=== PATIENT | male | born 1985 ===

== ENCOUNTER 2024-01-05 19:10 | Emergency (ER) | payer OTHER, SELFPAY ==
--- NOTE | ~2024-01-05 | XR_ITS ---
EXAMINATION: PORTABLE CHEST 1 VIEW CLINICAL INFORMATION: rib pain. COMPARISON: No recent pertinent prior studies are available for comparison. TECHNIQUE: Portable frontal view of the chest was obtained. FINDINGS: The lungs are well expanded. No focal infiltrate, effusion, edema, or pneumothorax. Cardiac and mediastinal silhouettes are within normal limits for technique. No acute bony abnormality seen. XR/XR chest 1V IMPRESSION: No evidence of acute disease. Electronically signed by: John Pacheco MD 01/05/2024 07:31 PM EDT
--- NOTE | ~2024-01-05 | CT_ITS ---
EXAMINATION: CT ABDOMEN AND PELVIS WITH CONTRAST CLINICAL INFORMATION: Epigastric pain with history of perforated ulcer. COMPARISON: None available. TECHNIQUE: Multidetector volumetric images were obtained from the superior aspect of the liver through the pubic symphysis following administration 85 mL of Omnipaque 350 intravenous contrast. Sagittal and coronal reformatted images were obtained on the technologist's workstation. Oral contrast: No This CT examination was performed using dose optimization techniques as appropriate, variously including the following: *Automated exposure control *Adjustment of mA and/or kV according to patient size (this includes techniques or standardized protocols for targeted exams where dose is matched to indication/reason for exam; i.e. extremities or head) *Use of iterative reconstruction technique DLP: 506 mGy-cm FINDINGS: LUNG BASES: The visualized lung bases are unremarkable. LIVER, GALLBLADDER, AND BILIARY TREE: The liver is normal in size, shape, and attenuation. No focal hepatic lesion or biliary ductal dilatation is present. Gallbladder surgically absent. PANCREAS: Unremarkable. SPLEEN: Unremarkable. ADRENAL GLANDS: Unremarkable. KIDNEYS AND URETERS: The kidneys are normal in size, shape, and attenuation. No hydronephrosis, hydroureter, or calculi seen. No perinephric stranding. BLADDER: Unremarkable. GASTROINTESTINAL TRACT: Chain ralph are present at the sigmoid colon. Stomach, small bowel, and colon are normal in caliber. No surrounding inflammatory changes. No intraperitoneal free fluid or free air. Appendix is normal. ABDOMINAL WALL: Status post umbilical herniorrhaphy with mesh. No surrounding fluid collections. No recurrent hernias. LYMPH NODES: Normal. VASCULAR: Unremarkable. PELVIC VISCERA: Unremarkable. 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 Bilateral hip dysplasia with abnormal morphology of the proximal femurs as well as moderate osteoarthritis. Prior varus osteotomy is suspected at the right proximal femur. CT/CT abdomen pelvis w IV con IMPRESSION: 1. No acute intra-abdominal or intrapelvic abnormalities. No evidence of perforation. 2. Status post umbilical herniorrhaphy with mesh. No recurrent hernias. 3. Bilateral hip dysplasia with moderate osteoarthritis. Fleischner guidelines were followed. Electronically signed by: Prakash Vick MD 01/06/2024 12:03 AM EDT
--- NOTE | 2024-01-05 19:18 | ED_ITS ---
HPI - General Adult General Chief complaint: Abdominal Pain Stated complaint: Rib pain Time Seen by Provider: 01/05/24 22:20 Source: patient Mode of arrival: ambulatory Limitations: no limitations History of Present Illness ED Provider: MICHAEL SESAY narrative: 38 yo male with PMH of HTN not on meds for 6 months, prior perforated gastric ulcer treated at [facility] 3 years ago not on any PPI, does not take NSAIDs here with c/o 1 weeks LUQ pain n/v this all started after heavy binge drinking last week. No recent alcohol. He notes he has not had pancreatitis before. He feels acid and burning in his throat. No GI bleed symptoms reported. He has a PCP in [place] but has not seen them in a while. He denies fevers, diarrhea. Has had this pain before MD complaint: abdominal pain Onset (ago): week(s) (1) Location: abdomen Radiation: non-radiation Severity: moderate Quality: burning and aching Pain Consistency: constant Relieving factors: none Exacerbating factors: eating Associated symptoms: loss of appetite, malaise and nausea/vomiting Treatments prior to arrival: none Related Data Previous Rx's ?Medication ?Instructions ?Recorded omeprazole 40 mg capsule,delayed 40 mg PO DAILY #30 caps 01/06/24 release ondansetron 4 mg disintegrating 4 mg PO Q8H PRN nausea and 01/06/24 tablet vomiting #20 tabs Allergies Allergy/AdvReac Type Severity Reaction Status Date / Time No Known Allergies Allergy Verified 01/05/24 19:22 Review of Systems 2 Review of Systems: Constitutional : No Weight loss, No Fever, No Chills ENT/Mouth : No sore throat, No Rhinorrhea Eyes: No Swelling, No Redness Cardiovascular : No Chest Pain, No SOB, NoEdema Respiratory : No Cough, No Sputum, No Wheezing Gastrointestinal : Positive Nausea, Positive Vomiting, no Diarrhea, positive abdominal Pain, No Hematochezia, No Melena Genitourinary : No Dysuria, No Urinary Frequency, No Hematuria, No Urgency Musculoskeletal : No joint pain, No Myalgias, No Joint Swelling Skin : No Skin Lesions, No rash Neuro : No Weakness, No Numbness, No Dizziness, No Headache Psych : No Anxiety/Panic, No Depression All other systems reviewed and are negative. [facility] Past Medical History Attestation statement: The following information was validated with the patient. Source: old records reviewed Medical History Perforated ulcer GERD (gastroesophageal reflux disease) HTN (hypertension) Surgical History History of laparotomy Social History Social History (Updated 01/05/24 @ 22:32 by Renetta Quintana DO) Alcohol intake: current Alcohol intake frequency: a few times a week Patient Tobacco Use Status: Tobacco use Unknown Smoked in Last 30 Days: Yes Use of substances other than those prescribed or required for medical reasons: No Substance Use Type: Marijuana Substance Use Frequency: Occasionally Advance Directives: No Advance Directives Information Provided: No Do you have a plan to hurt others: No Plan Physical Exam ED Vital Signs: Vital Signs - 24 hr 01/05/24 19:21 01/05/24 23:01 01/05/24 23:04 Temperature 98.7 F 98.5 F Pulse Rate 109 H 88 Respiratory Rate 20 18 16 Blood Pressure 163/89 H 121/78 Pulse Oximetry 99 94 Oxygen Delivery Method Room Air 01/05/24 23:37 01/06/24 00:38 Temperature 98.0 F 98.0 F Pulse Rate 99 87 Respiratory Rate 19 19 Blood Pressure 126/78 135/80 Pulse Oximetry 98 97 Oxygen Delivery Method Room Air Room Air BMI result Body Mass Index 34.0 Appearance: Alert. Oriented X3. No acute distress. Eyes: Pupils equal, round and reactive to light. ENT: Pharynx mildly dry MM Neck: Normal inspection. Neck supple. CVS: Normal heart rate and rhythm. Pulses normal. Respiratory: No respiratory distress. Breath sounds normal. Abdomen: Soft and moderate ttp in LUQ no rebound or guarding Skin: Skin warm and dry. Normal skin color. Normal skin turgor. Extremities: No lower extremity edema. No calf ttp Neuro: Oriented X 3. No motor deficit. No sensory deficit. Course Course Course Narrative: This is an RME done by LUZ Sanchez: Additional HPI, ROS, PE not included below will be deferred to primary provider. 38 year old presenting with concerns of LUQ abdominal/rib pain x past few days. He states he does drink alcohol frequently. Denies recent travel or sick contacts. Plan - imaging Appearance: Alert.? Oriented X3.? No acute cardiopulmonary distress distress.? Head: Normocephalic, atraumatic, no step-offs or deformities Neck: Normal inspection.? Neck supple.? CVS: Pulses normal.? Respiratory: No respiratory distress.? Abdomen: Soft and nontender.? Skin: ? Normal skin color. Extremities: 5/5 strength to bilateral upper and lower extremities Neuro: Oriented X 3.? No motor deficit.? No sensory deficit. Medications Administered Discontinued Medications Generic Name Dose Route Start Last Admin Trade Name Freq PRN Reason Stop Dose Admin Al Hydroxide/Mg Hydroxide 15 ml 01/06/24 00:12 01/06/24 00:34 Magnesium Hydrox/Alum Hydrox 30 Ml Oral.Susp PO 01/06/24 00:13 15 ml ONCE ONE Administration Lactated Ringer's 1,000 mls @ 999 mls/hr 01/05/24 22:25 01/05/24 23:04 Lr IV 01/05/24 23:25 999 mls/hr .Q1H1M ONE Administration Iohexol 85 ml 01/05/24 23:29 01/05/24 23:29 Iohexol 350 Mg/Ml 100 Ml Infus..Btl IV 01/05/24 23:30 85 ml ONCE ONE Administration Lidocaine HCl 15 ml 01/06/24 00:12 01/06/24 00:34 Lidocaine Hcl Viscous 2 % 15 Ml Solution MUCOUS MEM 01/06/24 00:13 15 ml ONCE ONE Administration Morphine Sulfate 4 mg 01/05/24 22:25 01/05/24 23:04 Morphine Sulfate 4 Mg/Ml Cartridge IVPUSH 01/05/24 22:26 4 mg ONCE ONE Administration Protocol Ondansetron HCl 4 mg 01/05/24 22:25 01/05/24 23:05 Ondansetron Hcl 4 Mg/2 Ml Vial IVPUSH 01/05/24 22:26 4 mg ONCE ONE Administration Pantoprazole Sodium 40 mg 01/05/24 22:25 01/05/24 23:05 Pantoprazole Sodium 40 Mg/10 Ml Vial IVPUSH 01/05/24 22:26 40 mg ONCE ONE Administration Medical Decision Making Medical Decision Making MDM Narrative: 38 yo male with PMH of HTN not on meds for 6 months, prior perforated gastric ulcer treated at [facility] 3 years ago not on any PPI, does not take NSAIDs here with c/o LUQ pain n/v no fevers no GIB symptoms not compliant with his medications at this time IV protonix, IV morphine for pain, CT scan for pancreatitis/perforated ulcer. He has no signs of withdrawal at this time BP is chronic due to lack of medications. He denies SI/HI. Differential Diagnosis Differential Diagnoses: The differential diagnosis associated with the presentation includes pancreatitis, gastritis, GERD, ETOH misuse Admission/Observation Consideration of admission/observation: Escalation of care including admission/observation considered labs, CT scan no vomiting stable for DC Lab Data MDM Lab Attestation statement: I reviewed the patient's lab results. 01/05/24 19:33 01/05/24 19:33 Labs: Lab Results 01/05/24 Range/Units 19:33 WBC 10.5 (4.8-10.8) X10*3/uL RBC 4.41 L (4.60-5.80) X10*6/uL Hgb 14.4 (14.0-18.0) g/dl Hct 42.1 (42.0-52.0) % MCV 95.5 (80.0-98.0) fL MCH 32.7 (27.0-33.0) pg MCHC 34.2 (31.0-36.0) g/dl RDW 13.3 (11.0-16.0) % Plt Count 366 (160-400) X10*3/uL MPV 8.9 L (9.4-12.4) fL Immature Gran % (Auto) 0.5 H (0.0-0.4) % Neut % (Auto) 59.1 (45-73) % Lymph % (Auto) 28.7 (20-40) % [place] % (Auto) 8.4 (2-11) % Eos % (Auto) 2.5 (0-4) % Baso % (Auto) 0.8 (0-2) % Lymph # (Auto) 3.0 (1.2-4.9) X10*3/uL [place] # (Auto) 0.9 (0.1-1.2) X10*3/uL Eos # (Auto) 0.3 (0.0-0.4) X10*3/uL Baso # (Auto) 0.1 (0.0-0.2) X10*3/uL Abs Immat Gran (auto) 0.05 H (0.00-0.03) X10*3/uL Absolute Neuts (auto) 6.2 (2.0-8.3) x10*3/uL Absolute Nucleated RBC 0.000 (0.0-0.012) X10*3/uL Nucleated RBC % (auto) 0.0 (0.0-0.2) /100WBC Sodium 141 (135-145) mmol/L Potassium 3.6 (3.3-5.1) mmol/L Chloride 109 H (96-108) mmol/L Carbon Dioxide 20 L (22-29) mmol/L Anion Gap 16 (12-20) BUN 12 (9-16) mg/dL Creatinine 0.89 (0.5-1.4) mg/dL Estim Creat Clear Calc 97.0 Estimated GFR > 60 Random Glucose 168 H (60-115) mg/dL Calcium 9.1 (8.4-10.2) mg/dL Magnesium 2.0 (1.6-2.6) mg/dL Total Bilirubin 0.3 (0.0-1.0) mg/dL AST 25 (5-37) U/L ALT 29 (0-40) U/L Alkaline Phosphatase 106 (39-117) U/L Total Protein 6.8 (6.5-8.0) g/dL Albumin 4.0 (3.5-5.0) g/dL Lipase 39 (8-78) U/L Independent Interpretation I performed an independent interpretation of an: Plain X-Ray (normal ) and CT Scan (no acute findings) Radiology Impression Discussion of test interpretation with radiology: I have reviewed the radiologist's reading. Prescription Management I considered prescription management with: Other Critical Care Time Critical Care Time Critical Care Time: Yes Total Critical Care Time: 35 Attestation: IV morphine with improvement in pain, repeat assessment I attest to this time spent taking care of the patient Discharge Plan Discharge Clinical Impression: Gastritis Qualifiers: Gastritis type: unspecified gastritis Chronicity: acute Gastritis bleeding: w ithout bleeding Qualified Code(s): K29.00 - Acute gastritis without bleeding Nausea & vomiting Qualifiers: Vomiting type: unspecified Qualified Code(s): R11.2 - Nausea with vomiting, unspecified Patient Disposition: Home, Self-Care Instructions: Gastritis (ED), Acute Nausea and Vomiting (ED) Additional Instructions: labs reassuring chest xray normal CT scan of abdomen no acute findings arthritis in both hips mild - can follow up with your doctor continue to avoid things like motrin, advil, ibuprofen - TYLENOL is OKAY return for any worsening symptoms or concerns take omeprazole Prescriptions: New ondansetron 4 mg tablet,disintegrating 4 mg PO Q8H PRN (Reason: nausea and vomiting) Qty: 20 0RF omeprazole 40 mg capsule,delayed release(DR/EC) 40 mg PO DAILY Qty: 30 1RF Interventions: ED Discharge Assessment Last Done: 01/06/24 00:38 Discharge Date/Time: 01/06/24 00:39 Print Language: Nepali
[2024-01-05 19:21] VITALS: BP 163/89; PULSE 109; RESP 20; TEMP 37.1; O2SAT 99; BMI 34.0
[2024-01-05 19:37] LABS: MANUAL DIFF FLAG NO
[2024-01-05 19:42] LABS: Basophils Absolute Auto 0.1 X10*3/uL (0.0-0.2); Basophils Percent Auto 0.8 % (0-2); Eosinophils Absolute Auto 0.3 X10*3/uL (0.0-0.4); Eosinophils Percent Auto 2.5 % (0-4); Hematocrit 42.1 % (42.0-52.0); Hemoglobin 14.4 g/dl (14.0-18.0); Imm Gran Abs Auto 0.05 X10*3/uL (0.00-0.03); Imm Gran Pct Auto 0.5 % (0.0-0.4); Lymphocytes Percent Auto 28.7 % (20-40); Mean Corpuscular HGB Conc 34.2 g/dl (31.0-36.0); Mean Corpuscular Hemoglobin 32.7 pg (27.0-33.0); Mean Corpuscular Volume 95.5 fL (80.0-98.0); Mean Platelet Volume 8.9 fL (9.4-12.4); Monocytes Absolute Auto 0.9 X10*3/uL (0.1-1.2); Monocytes Percent Auto 8.4 % (2-11); Neutrophils Absolute Auto 6.2 x10*3/uL (2.0-8.3); Neutrophils Percent Auto 59.1 % (45-73); Platelet Count 366 X10*3/uL (160-400); Red Blood Count 4.41 X10*6/uL (4.60-5.80); Red Cell Distribution Width 13.3 % (11.0-16.0); White Blood Count 10.5 X10*3/uL (4.8-10.8)
[2024-01-05 19:52] LABS: Alanine Aminotransferase 29 U/L (0-40); Alkaline Phosphatase 106 U/L (39-117); Anion Gap 16 (12-20); Aspartate Amino Transferase 25 U/L (5-37); Bilirubin Total 0.3 mg/dL (0.0-1.0); Blood Urea Nitrogen 12 mg/dL (9-16); Calcium 9.1 mg/dL (8.4-10.2); Carbon Dioxide 20 mmol/L (22-29); Chloride 109 mmol/L (96-108); Estimated Glomerular Filt Rate > 60; Glucose Random 168 mg/dL (60-115); Lipase 39 U/L (8-78); Potassium 3.6 mmol/L (3.3-5.1); Sodium 141 mmol/L (135-145); Total Protein 6.8 g/dL (6.5-8.0)
[2024-01-05 23:01] VITALS: BP 121/78; PULSE 88; RESP 18; TEMP 36.9; O2SAT 94
[2024-01-05 23:04] VITALS: RESP 16
[2024-01-05] MEDS: Morphine Sulfate 4 MG/ML CARTRIDGE IVPUSH (23:04)
[2024-01-05] MEDS: Lactated Ringers 1,000 ML 999 ML IV (23:04)
[2024-01-05] MEDS: Pantoprazole Sodium 40 MG/10 ML VIAL IVPUSH (23:05)
[2024-01-05] MEDS: ondansetron HCL 4 MG/2 ML VIAL IVPUSH (23:05)
[2024-01-05] MEDS: iohexoL 350 MG/ML 100 ML INFUS..BTL 85 ML IV (23:29)
--- NOTE | 2024-01-05 23:34 | PC.NURSE ---
Took over care from JUAN CARLOS Suero, Pt was medicated per Jul, pt taken to CT Scan.
[2024-01-05 23:37] VITALS: BP 126/78; PULSE 99; RESP 19; TEMP 36.7; O2SAT 98
[2024-01-06] MEDS: Lidocaine HCl Viscous 2 % 15 ML SOLUTION MUCOUS MEM (00:34)
[2024-01-06] MEDS: Magnesium Hydrox/Alum Hydrox 30 ML ORAL.SUSP 15 ML PO (00:34)
--- NOTE | 2024-01-06 00:37 | PC.NURSE ---
Medicated per mar, reviewed discharge instruction with pt, pt verbalized understanding. no sign of distress.
[2024-01-06 00:38] VITALS: BP 135/80; PULSE 87; RESP 19; TEMP 36.7; O2SAT 97
== END 2024-01-06 00:39 | disposition home or self-care (01) ==
PROVIDERS: Physician Assistant; Emergency Provider Emergency Medicine
DX: K29.00 Acute gastritis without bleeding (principal); R10.12 Left upper quadrant pain; R07.81 Pleurodynia; R11.2 Nausea with vomiting, unspecified; R10.13 Epigastric pain; I10 Essential (primary) hypertension; Z79.899 Other long term (current) drug therapy
CPT/HCPCS: 36415; 71045; 74177; 80053; 83690; 83735; 85025; 96374; 96375; 99285; J2270; J2405; J2470; J7120; Q9967